=== PATIENT | female | born 1935 | race Caucasian/White ===

== ENCOUNTER 2019-09-29 18:51 | Emergency (ER) | payer MEDICARE ==
[~2019-09-29] VITALS: Ht 149.9 cm; Wt 43.1 kg
--- NOTE | 2019-09-29 19:00 | NUR ---
verónica, c/o left knee and back of the head pain s/p tripped and fall hit her hea on the tiles, -ko, PT AWAKE, ALERT, -SOB, NADN OTED, VSS ,PENDING MD DAVID
--- NOTE | 2019-09-29 19:43 | NUR ---
Patient discharged to home in stable condition. Written and verbal after care instructions given. Patient verbalizes understanding of instruction.
[2019-09-29 19:47] VITALS: BP 149/75
== END 2019-09-29 19:49 | disposition home or self-care (01) ==
LOC: ER 18:56
DX: S09.8XXA Other specified injuries of head, initial encounter (principal); M06.9 Rheumatoid arthritis, unspecified; F32.9 Major depressive disorder, single episode, unspecified; W01.0XXA Fall on same level from slipping, tripping and stumbling without subsequent striking against object, initial encounter; Y93.89 Activity, other specified; Y92.89 Other specified places as the place of occurrence of the external cause; Y99.8 Other external cause status
CPT/HCPCS: 70450-TC